=== PATIENT | female | born 1980 | race Caucasian/White ===

== ENCOUNTER 2018-09-24 13:32 | Emergency (ER) | payer OTHER ==
[2018-09-24 14:28] LABS: Urine Blood NEGATIVE (NEG); Urine Glucose NEGATIVE (NEG); Urine Protein TRACE (NEG); Urine pH 7.5 (5.0-7.0)
[2018-09-24 14:32] LABS: Urine Bacteria <20 /HPF (<20); Urine Culture Reflex Order NOT NEEDED; Urine Mucus SLIGHT /HPF (NONE SEEN); Urine RBC NONE SEEN /HPF (NONE SEEN)
--- NOTE | 2018-09-24 14:48 | EDPHYS ---
Physician Documentation [facility] Name: Mata Vital Age: 37 yrs Sex: Female : 1980 Arrival Date: 09/24/2018 Time: 13:35 Bed 26 Private MD: ED Physician Jose Juan Chacon HPI: 09/24 15:03 This 37 yrs old Female presents to ER via Ambulatory with complaints of STD kb Exposure. 15:04 The patient presents with a possible exposure to a sexually transmitted disease. Onset: kb The symptoms/episode began/occurred 1 week(s) ago. Modifying factors: The symptoms are alleviated by nothing, the symptoms are aggravated by nothing. Associated signs and symptoms: Pertinent positives: vaginal discharge. Severity of symptoms: At their worst the symptoms were very mild, mild, in the emergency department the symptoms are unchanged. The patient has not experienced similar symptoms in the past. The patient has not recently seen a physician. Pt states she finished a course of antibiotics for a tooth infection, then had some vaginal irritation so she took a diflucan on Friday. States it felt like the irritation was getting better, but then today it seems like it is coming back. States one of her sexual partners has been telling her he has some kind of STD symptoms so she needs to get checked. States "He is accusing me of giving him something, but I've only been with my and him so I don't think so." Reports slight dysuria. . 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 - Social history:: Smoking status: unknown. - Ebola Screening: : Patient negative for fever greater than or equal to 101.5 degrees Fahrenheit, and additional compatible Ebola Virus Disease symptoms Patient denies exposure to infectious person Patient denies travel to an Ebola-affected area in the 21 days before illness onset No symptoms or risks identified at this time. ROS: 14:57 Constitutional: Negative for fever, chills, and weight loss, Cardiovascular: Negative kb for chest pain, palpitations, and edema, Respiratory: Negative for shortness of breath, cough, wheezing, and pleuritic chest pain, Abdomen/GI: Negative for abdominal pain, nausea, vomiting, diarrhea, and constipation, Back: Negative for injury and pain, MS/Extremity: Negative for injury and deformity, Skin: Negative for injury, rash, and discoloration, Neuro: Negative for headache, weakness, numbness, tingling, and seizure. 14:57 : Positive for burning with urination, vaginal irritation. Exam: 14:57 Constitutional: This is a well developed, well nourished patient who is awake, alert, kb and in no acute distress. Head/Face: Normocephalic, atraumatic. Neck: Trachea midline, no thyromegaly or masses palpated, and no cervical lymphadenopathy. Supple, full range of motion without nuchal rigidity, or vertebral point tenderness. No Meningismus. Chest/axilla: Normal chest wall appearance and motion. Nontender with no deformity. No lesions are appreciated. Cardiovascular: Regular rate and rhythm with a normal S1 and S2. No gallops, murmurs, or rubs. Normal PMI, no JVD. No pulse deficits. Respiratory: Lungs have equal breath sounds bilaterally, clear to auscultation and percussion. No rales, rhonchi or wheezes noted. No increased work of breathing, no retractions or nasal flaring. Abdomen/GI: Soft, non-tender, with normal bowel sounds. No distension or tympany. No guarding or rebound. No evidence of tenderness throughout. Back: No spinal tenderness. No costovertebral tenderness. Full range of motion. Skin: Warm, dry with normal turgor. Normal color with no rashes, no lesions, and no evidence of cellulitis. MS/ Extremity: Pulses equal, no cyanosis. Neurovascular intact. Full, normal range of motion. Neuro: Awake and alert, GCS 15, oriented to person, place, time, and situation. Cranial nerves II-XII grossly intact. Motor strength 5/5 in all extremities. Sensory grossly intact. Cerebellar exam normal. Normal gait. Vital Signs: 13:44 BP 139 / 84; Pulse 84; Resp 18; Temp 98.3(TE); Pulse Ox 98% on R/A; Weight 68.04 kg; hj Height 5 ft. 8 in. (172.72 cm); Pain 7/10; 13:44 Body Mass Index 22.81 (68.04 kg, 172.72 cm) hj MDM: 13:51 Patient medically screened. kb 14:57 Data reviewed: vital signs, nurses notes. Data interpreted: Pulse oximetry: on room air kb is 98 %. Interpretation: normal. 15:02 Counseling: I had a detailed discussion with the patient and/or guardian regarding: the kb historical points, exam findings, and any diagnostic results supporting the discharge/admit diagnosis, the need for outpatient follow up, an OB/Gyne specialist, to return to the emergency department if symptoms worsen or persist or if there are any questions or concerns that arise at home. ED course: pt has follow up appt on friday. 09/24 14:04 Order name: Urine Microscopic Only; Complete Time: 14:33 kb 09/24 14:10 Order name: Urine Dipstick--Ancillary (enter results); Complete Time: 14:31 kb 09/24 14:15 Order name: Test, Urine; Complete Time: 14:31 EDAZ 09/24 14:04 Order name: Urine Dipstick-Ancillary (obtain specimen); Complete Time: 14:28 kb 09/24 14:04 Order name: Urine Test (obtain specimen); Complete Time: 14:28 kb Administered Medications: 15:00 Drug: Zithromax 1 grams Route: PO; iw 15:00 Drug: Rocephin (cefTRIAXone) 250 mg Route: IM; Site: right gluteus; iw 15:00 Drug: DiFLUcan 150 mg Route: PO; iw Disposition: 09/25 06:47 Co-signature as Attending Physician, Jose Juan Chacon MD I agree with the assessment and kdr plan of care. Disposition: 09/24/18 14:47 Discharged to Home. Impression: Dysuria, Encounter for STD exposure. - Condition is Stable. - Discharge Instructions: Dysuria, Sexually Transmitted Disease, Haid-iu-Hvgr. - Medication Reconciliation Form, Thank You Letter, Antibiotic Education, Prescription Opioid Use form. - Follow up: Emergency Department; When: As needed; Reason: Worsening of condition. Follow up: Private Physician; When: 2 - 3 days; Reason: Recheck today's complaints, Continuance of care, Re-evaluation by your physician. Signatures: Dispatcher [employer] EDAZ Keira Vital FNP-C FNP-Taylor Jose Juan Chacon MD MD kdr Leana Odonnell, JONN LUNSFORD iw Dennis Pedroza RN RN Corrections: (The following items were deleted from the chart) 09/24 14:48 14:47 09/24/2018 14:47 Discharged to Home. Impression: Dysuria. Condition is Stable. kb Forms are Medication Reconciliation Form, Thank You Letter, Antibiotic Education, Prescription Opioid Use. Follow up: Emergency Department; When: As needed; Reason: Worsening of condition. Follow up: Private Physician; When: 2 - 3 days; Reason: Recheck today's complaints, Continuance of care, Re-evaluation by your physician. kb 15:08 14:48 09/24/2018 14:47 Discharged to Home. Impression: Dysuria; Encounter for STD iw exposure. Condition is Stable. Forms are Medication Reconciliation Form, Thank You Letter, Antibiotic Education, Prescription Opioid Use. Follow up: Emergency Department; When: As needed; Reason: Worsening of condition. Follow up: Private Physician; When: 2 - 3 days; Reason: Recheck today's complaints, Continuance of care, Re-evaluation by your physician. kb
--- NOTE | 2018-09-24 14:48 | ER ---
Nurse's Notes [facility] Name: Mata Vital Age: 37 yrs Sex: Female : 1980 Arrival Date: 09/24/2018 Time: 13:35 Bed 26 Private MD: Diagnosis: Dysuria;Encounter for STD exposure Presentation: 09/24 13:41 Presenting complaint: Patient states: i took some amoxicillin for a week for my tooth hj infection, Diflucan for yeast infection, i feel like its not helping; reports vaginal irritation and discharge, whitish color; denies fever and chills; denies N/V:. Transition of care: patient was not received from another setting of care. Onset of symptoms was September 24, 2018. Risk Assessment: Do you want to hurt yourself or someone else? Patient reports no desire to harm self or others. Initial Sepsis Screen: Does the patient meet any 2 criteria? No. Patient's initial sepsis screen is negative. Does the patient have a suspected source of infection? No. Patient's initial sepsis screen is negative. Care prior to arrival: None. 13:41 Method Of Arrival: Ambulatory 13:41 Acuity: SUJATA 4 Triage Assessment: 14:30 General: Appears in no apparent distress. Behavior is calm, cooperative. Pain: Denies iw pain. 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 - Social history:: Smoking status: unknown. - Ebola Screening: : Patient negative for fever greater than or equal to 101.5 degrees Fahrenheit, and additional compatible Ebola Virus Disease symptoms Patient denies exposure to infectious person Patient denies travel to an Ebola-affected area in the 21 days before illness onset No symptoms or risks identified at this time. Screenin:40 Abuse screen: Denies threats or abuse. Denies injuries from another. Nutritional iw screening: No deficits noted. Tuberculosis screening: No symptoms or risk factors identified. Fall Risk None identified. Assessment: 14:40 General: Appears in no apparent distress. comfortable, Behavior is calm, cooperative. iw Neuro: Level of Consciousness is awake, alert, obeys commands, Oriented to person, place, time, situation, Moves all extremities. Full function. Cardiovascular: Patient's skin is warm and dry. Respiratory: Respiratory effort is even, unlabored, Respiratory pattern is regular, symmetrical. : Reports discharge, from vagina that is white, vaginal itching. Derm: Skin is intact, is healthy with good turgor. Musculoskeletal: Range of motion: intact in all extremities. Vital Signs: 13:44 BP 139 / 84; Pulse 84; Resp 18; Temp 98.3(TE); Pulse Ox 98% on R/A; Weight 68.04 kg; hj Height 5 ft. 8 in. (172.72 cm); Pain 7/10; 13:44 Body Mass Index 22.81 (68.04 kg, 172.72 cm) hj ED Course: 13:35 Patient arrived in ED. rg4 13:43 Triage completed. hj 13:44 Keira Vital FNP-C is [facility]. kb 13:44 Jose Juan Chacon MD is Attending Physician. kb 13:44 Arm band placed on left wrist. hj 14:00 Patient has correct armband on for positive identification. iw 14:14 Leana Odonnell, RN is Primary Nurse. iw 15:06 No provider procedures requiring assistance completed. Patient did not have IV access iw during this emergency room visit. Administered Medications: 15:00 Drug: Zithromax 1 grams Route: PO; iw 15:00 Drug: Rocephin (cefTRIAXone) 250 mg Route: IM; Site: right gluteus; iw 15:00 Drug: DiFLUcan 150 mg Route: PO; iw Outcome: 14:47 Discharge ordered by . kb 15:07 Discharged to home ambulatory. iw 15:07 Condition: good 15:07 Discharge instructions given to patient, Instructed on discharge instructions, follow up and referral plans. Demonstrated understanding of instructions, follow-up care. 15:08 Patient left the ED. iw Signatures: Keira Vital FNP-C FNP-Ckb Williams, Irene, RN RN Dennis Pedroza RN RN Ally Brown rg4 Corrections: (The following items were deleted from the chart) 13:46 13:44 Pulse 84bpm; Resp 18bpm; Pulse Ox 98% RA; Temp 98.3F Temporal; 68.04 kg; Height 5 hj ft. 8 in.; BMI: 22.8; Pain 7/10; hj
[2018-09-24] MEDS ORDERED: LIDOCAINE 1% MPF 5 ML VIAL ONE (15:09)
[2018-09-24] MEDS ORDERED: AZITHROMYCIN 250 MG TAB ONE (15:09)
[2018-09-24] MEDS ORDERED: FLUCONAZOLE 100 MG TAB ONE (15:10)
[2018-09-24] MEDS ORDERED: CEFTRIAXONE 250 MG/VIAL ONE (15:10)
== END 2018-09-24 15:08 | disposition home or self-care (01) ==
LOC: ER 13:32
DX: Z20.2 Contact with and (suspected) exposure to infections with a predominantly sexual mode of transmission (principal); R30.0 Dysuria; F31.9 Bipolar disorder, unspecified; Z88.2 Allergy status to sulfonamides
CPT/HCPCS: 81003; 81015; 81025; 96372; 99283; J0696

== ENCOUNTER 2018-10-27 16:51 | Emergency (ER) | payer OTHER ==
--- NOTE | 2018-10-27 17:25 | EDPHYS ---
Physician Documentation [facility] Name: Mata Vital Age: 38 yrs Sex: Female : 1980 Arrival Date: 10/27/2018 Time: 16:54 Bed 25 Private MD: ED Physician Elias Hwang HPI: 10/27 17:15 This 38 yrs old Female presents to ER via Ambulatory with complaints of rn Fever, Congestion. 17:15 The patient reports fever, not measured (subjective). Onset: The symptoms/episode rn began/occurred 4 day(s) ago. Modifying factors: there are no obvious modifying factors. Associated signs and symptoms: Pertinent positives: cough, runny nose, sinus congestion. Severity of symptoms: At their worst the symptoms were mild in the emergency department the symptoms are unchanged. The patient has experienced similar episodes in the past. Reports chronic cough, got worse over the weekend, mucous, with runny nose and congestion, subjective fever, is active smoker for 22 years. Reports "always has bronchitis", and usually given abx. States this usually never works. NO hemoptysis. No Sob. . 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 - Social history:: Smoking status: Patient uses tobacco products, smokes one pack cigarettes per day. - Ebola Screening: : No symptoms or risks identified at this time. - Family history:: not pertinent. - Hospitalizations: : No recent hospitalization is reported. 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 Exam: 17:15 Constitutional: This is a well developed, well nourished patient who is awake, alert, rn and in no acute distress. Ambulatory to room without difficulty or assistance. Head/Face: Normocephalic, atraumatic. ENT: MMM, no stridor or swelling Neck: Non-tender cervical LAD Cardiovascular: Regular rate and rhythm. No pulse deficits. Respiratory: Lungs have equal breath sounds bilaterally, clear to auscultation. No increased work of breathing, no retractions or nasal flaring. MS/ Extremity: Pulses equal, no cyanosis. Neurovascular intact. Full, normal range of motion. Equal circumference. Neuro: Awake and alert, GCS 15 Vital Signs: 16:59 BP 113 / 81; Pulse 78; Resp 16; Temp 98.7; Pulse Ox 100% on R/A; Weight 72.57 kg; la1 Height 5 ft. 8 in. (172.72 cm); 16:59 Body Mass Index 24.33 (72.57 kg, 172.72 cm) la1 MDM: 17:00 Patient medically screened. rn 17:15 Differential diagnosis: viral Infection, URI, bronchitis. Data reviewed: vital signs, rn nurses notes, and as a result, I will discharge patient. Counseling: I had a detailed discussion with the patient and/or guardian regarding: the historical points, exam findings, and any diagnostic results supporting the discharge/admit diagnosis, the need for outpatient follow up, to return to the emergency department if symptoms worsen or persist or if there are any questions or concerns that arise at home. Special discussion: I discussed with the patient/guardian in detail that at this point there is no indication for admission to the hospital. It is understood, however, that if the symptoms persist or worsen the patient needs to return immediately for re-evaluation. ED course: Patient without oxygen requirement, clear breath sounds, offered patient xray, patient declines. Had long discussion regarding need to quit smoking and how likely causing her chronic cough and respiratory symptoms. In addition spoke at length about not needing abx and clinically does not seem to have pneumonia. Will dc home.. 17:26 Counseling: I had a detailed discussion with the patient and/or guardian regarding: rn smoking cessation. Administered Medications: No medications were administered Disposition: 10/27/18 17:24 Discharged to Home. Impression: Cough, Acute upper respiratory infection, unspecified. - Condition is Stable. - Discharge Instructions: Steps to Quit Smoking, Smoking Hazards, Upper Respiratory Infection, Adult, Viral Respiratory Infection, Cough, Adult. - Prescriptions for Guaifenesin AC 10- 100 mg/5 mL Oral Liquid - take 10 milliliters by ORAL route At bedtime As needed; 140 milliliter. - Medication Reconciliation Form, Thank You Letter, Antibiotic Education, Prescription Opioid Use, Work release form form. - Follow up: Private Physician; When: As needed; Reason: Recheck today's complaints, Re-evaluation by your physician. - Problem is an ongoing problem. - Symptoms are unchanged. Signatures: Elias Hwang MD MD rn AttemLouis kelley RN RN la1 Lena Lowe RN RN tw2 Corrections: (The following items were deleted from the chart) 17:31 17:24 10/27/2018 17:24 Discharged to Home. Impression: Cough; Acute upper respiratory tw2 infection, unspecified. Condition is Stable. Forms are Medication Reconciliation Form, Thank You Letter, Antibiotic Education, Prescription Opioid Use. Follow up: Private Physician; When: As needed; Reason: Recheck today's complaints, Re-evaluation by your physician. Problem is an ongoing problem. Symptoms are unchanged. rn
--- NOTE | 2018-10-27 17:25 | ER ---
Nurse's Notes [facility] Name: Mata Vital Age: 38 yrs Sex: Female : 1980 Arrival Date: 10/27/2018 Time: 16:54 Bed 25 Private MD: Diagnosis: Cough;Acute upper respiratory infection, unspecified Presentation: 10/27 16:59 Presenting complaint: Patient states: four days of cough, DHALIWAL, sneezing, subjective la1 fever, niece is also ill with similar sx at home. Transition of care: patient was not received from another setting of care. Onset of symptoms was October 27, 2018. Risk Assessment: Do you want to hurt yourself or someone else? Patient reports no desire to harm self or others. Initial Sepsis Screen: Does the patient meet any 2 criteria? No. Patient's initial sepsis screen is negative. Does the patient have a suspected source of infection? No. Patient's initial sepsis screen is negative. Care prior to arrival: None. 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 - Social history:: Smoking status: Patient uses tobacco products, smokes one pack cigarettes per day. - Ebola Screening: : No symptoms or risks identified at this time. - Family history:: not pertinent. - Hospitalizations: : No recent hospitalization is reported. Screenin:30 Abuse screen: Denies threats or abuse. Nutritional screening: No deficits noted. tw2 Tuberculosis screening: No symptoms or risk factors identified. Fall Risk None identified. Assessment: 17:29 General: Appears in no apparent distress. Behavior is calm, cooperative, appropriate tw2 for age. Pain: Denies pain. Neuro: Level of Consciousness is awake, alert, obeys commands, Oriented to person, place, time, situation. Cardiovascular: Patient's skin is warm and dry. Respiratory: Reports cough that is non-productive, Airway is patent Respiratory effort is even, unlabored, Respiratory pattern is regular, symmetrical. GI: No signs and/or symptoms were reported involving the gastrointestinal system. : No signs and/or symptoms were reported regarding the genitourinary system. EENT: Reports nasal congestion nasal discharge. Derm: No signs and/or symptoms reported regarding the dermatologic system. Musculoskeletal: Range of motion: intact in all extremities. Vital Signs: 16:59 BP 113 / 81; Pulse 78; Resp 16; Temp 98.7; Pulse Ox 100% on R/A; Weight 72.57 kg; la1 Height 5 ft. 8 in. (172.72 cm); 16:59 Body Mass Index 24.33 (72.57 kg, 172.72 cm) la1 ED Course: 16:54 Patient arrived in ED. mr 16:58 Arm band placed on left wrist. la1 17:00 Triage completed. la1 17:00 Elias Hwang MD is Attending Physician. rn 17:00 Bed in low position. Call light in reach. tw2 17:25 Lena Lowe RN is Primary Nurse. tw2 17:30 No provider procedures requiring assistance completed. Patient did not have IV access tw2 during this emergency room visit. Administered Medications: No medications were administered Outcome: 17:24 Discharge ordered by . rn 17:30 Discharged to home ambulatory. tw2 17:30 Condition: stable 17:30 Discharge instructions given to patient, Instructed on discharge instructions, follow up and referral plans. medication usage, Demonstrated understanding of instructions, follow-up care, medications, Prescriptions given X 1. 17:31 Patient left the ED. tw2 Signatures: Alexandru Malu mr Elias Hwang MD MD rn Attema, Lee, RN RN la1 Lena Lowe RN RN tw2
== END 2018-10-27 17:31 | disposition home or self-care (01) ==
LOC: ER 16:51
DX: J06.9 Acute upper respiratory infection, unspecified (principal); F17.210 Nicotine dependence, cigarettes, uncomplicated; Z88.2 Allergy status to sulfonamides

== ENCOUNTER 2018-12-12 15:58 | Emergency (ER) | payer SELFPAY ==
[2018-12-12 17:07] LABS: Urine Bacteria <20 /HPF (<20); Urine Culture Reflex Order REFLEXED
[2018-12-12 17:08] LABS: Urine Trichomonas PRESENT (NONE SEEN)
--- NOTE | 2018-12-12 17:10 | ER ---
Nurse's Notes [facility] Name: Mata Vital Age: 38 yrs Sex: Female : 1980 Arrival Date: 12/12/2018 Time: 16:01 Bed 8 Private MD: Diagnosis: Trichomoniasis Presentation: 12/12 16:13 Presenting complaint: Patient states: burning, stinging pain to vaginal area X 2 weeks, iw felt like yeast infection, has tried Monistat 3 with no relief. Transition of care: patient was not received from another setting of care. Onset of symptoms was November 28, 2018. Risk Assessment: Do you want to hurt yourself or someone else? Patient reports no desire to harm self or others. Initial Sepsis Screen: Does the patient meet any 2 criteria? No. Patient's initial sepsis screen is negative. Does the patient have a suspected source of infection? No. Patient's initial sepsis screen is negative. Care prior to arrival: None. 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 - Social history:: Smoking status: Patient uses tobacco products, smokes one pack cigarettes per day. - Ebola Screening: : Patient negative for fever greater than or equal to 101.5 degrees Fahrenheit, and additional compatible Ebola Virus Disease symptoms Patient denies exposure to infectious person Patient denies travel to an Ebola-affected area in the 21 days before illness onset No symptoms or risks identified at this time. Screenin:46 Abuse screen: Denies threats or abuse. Denies injuries from another. Nutritional jl7 screening: No deficits noted. Tuberculosis screening: No symptoms or risk factors identified. Fall Risk None identified. Assessment: 16:46 General: Appears in no apparent distress. uncomfortable, Behavior is cooperative, jl7 appropriate for age, anxious. Pain: Denies pain. Neuro: Level of Consciousness is awake, alert, obeys commands, Oriented to person, place, time, situation. Cardiovascular: Patient's skin is warm and dry. Respiratory: Airway is patent Respiratory effort is even, unlabored, Respiratory pattern is regular, symmetrical. : Swelling noted on labia Reports burning with urination, vaginal itching. Derm: Skin is pink, warm \T\ dry. Vital Signs: 16:20 BP 113 / 71; Pulse 108; Resp 18 S; Temp 98.0; Pulse Ox 99% on R/A; Weight 70.31 kg; iw Height 5 ft. 8 in. (172.72 cm); Pain 8/10; 16:20 Body Mass Index 23.57 (70.31 kg, 172.72 cm) iw ED Course: 16:01 Patient arrived in ED. mr 16:07 [facility] kb 16:07 Jose Juan Chacon MD is Attending Physician. kb 16:18 Triage completed. iw 16:19 Slava Montesinos, RN is Primary Nurse. bp 16:21 Arm band placed on. iw 16:30 Abdoulaye Soto, JONN is Primary Nurse. jl7 16:30 Patient has correct armband on for positive identification. Placed in gown. Bed in low jl7 position. Call light in reach. Side rails up X 1. 16:47 No provider procedures requiring assistance completed. Patient did not have IV access jl7 during this emergency room visit. Administered Medications: 17:27 Drug: DiFLUcan 150 mg Route: PO; jl7 17:27 Follow up: Response: Medication administered at discharge. jl7 17:27 Drug: Flagyl 2 grams Route: PO; jl7 17:27 Follow up: Response: Medication administered at discharge. jl7 Outcome: 17:10 Discharge ordered by MD. kb 17:27 Discharged to home ambulatory. jl7 17:27 Condition: stable 17:27 Discharge instructions given to patient, Instructed on discharge instructions, follow up and referral plans. Demonstrated understanding of instructions, follow-up care. 17:28 Patient left the ED. jl7 Signatures: Keira Vital FNP-C FNP-Taylor Malu Horvath Leana Odonnell RN RN iw Abdoulaye Soto RN RN jl7 Slava Montesinos RN RN bp
--- NOTE | 2018-12-12 17:10 | EDPHYS ---
Physician Documentation [facility] Name: Mata Vital Age: 38 yrs Sex: Female : 1980 Arrival Date: 12/12/2018 Time: 16:01 Bed 8 Private MD: ED Physician Jose Juan Chacon HPI: 12/12 16:57 This 38 yrs old Female presents to ER via Ambulatory with complaints of Women kb problems. 17:00 The patient presents with perineal itching, urinary symptoms, dysuria. Onset: The kb symptoms/episode began/occurred 2 week(s) ago. Modifying factors: The symptoms are alleviated by nothing, the symptoms are aggravated by urinating. Associated signs and symptoms: Pertinent positives: dysuria. Severity of symptoms: At their worst the symptoms were moderate, in the emergency department the symptoms are unchanged. The patient has experienced similar episodes in the past. The patient has not recently seen a physician. Pt reports she has had symptoms of a yeast infection for 2 weeks. Took monistat 3 with no relief. c/o itching and burning to vaginal area, worse with urination. 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 - Social history:: Smoking status: Patient uses tobacco products, smokes one pack cigarettes per day. - Ebola Screening: : Patient negative for fever greater than or equal to 101.5 degrees Fahrenheit, and additional compatible Ebola Virus Disease symptoms Patient denies exposure to infectious person Patient denies travel to an Ebola-affected area in the 21 days before illness onset No symptoms or risks identified at this time. ROS: 16:56 Constitutional: Negative for fever, chills, and weight loss, Neck: Negative for injury, kb pain, and swelling, Cardiovascular: Negative for chest pain, palpitations, and edema, Respiratory: Negative for shortness of breath, cough, wheezing, and pleuritic chest pain, Abdomen/GI: Negative for abdominal pain, nausea, vomiting, diarrhea, and constipation, Back: Negative for injury and pain, MS/Extremity: Negative for injury and deformity, Skin: Negative for injury, rash, and discoloration, Neuro: Negative for headache, weakness, numbness, tingling, and seizure. 16:56 : Positive for burning with urination, vaginal pain, burning, itching. Exam: 16:56 Constitutional: This is a well developed, well nourished patient who is awake, alert, kb and in no acute distress. Head/Face: Normocephalic, atraumatic. ENT: Nares patent. No nasal discharge, no septal abnormalities noted. Tympanic membranes are normal and external auditory canals are clear. Oropharynx with no redness, swelling, or masses, exudates, or evidence of obstruction, uvula midline. Mucous membranes moist. Neck: Trachea midline, no thyromegaly or masses palpated, and no cervical lymphadenopathy. Supple, full range of motion without nuchal rigidity, or vertebral point tenderness. No Meningismus. Chest/axilla: Normal chest wall appearance and motion. Nontender with no deformity. No lesions are appreciated. Cardiovascular: Regular rate and rhythm with a normal S1 and S2. No gallops, murmurs, or rubs. Normal PMI, no JVD. No pulse deficits. Respiratory: Lungs have equal breath sounds bilaterally, clear to auscultation and percussion. No rales, rhonchi or wheezes noted. No increased work of breathing, no retractions or nasal flaring. Abdomen/GI: Soft, non-tender, with normal bowel sounds. No distension or tympany. No guarding or rebound. No evidence of tenderness throughout. Skin: Warm, dry with normal turgor. Normal color with no rashes, no lesions, and no evidence of cellulitis. MS/ Extremity: Pulses equal, no cyanosis. Neurovascular intact. Full, normal range of motion. Neuro: Awake and alert, GCS 15, oriented to person, place, time, and situation. Cranial nerves II-XII grossly intact. Motor strength 5/5 in all extremities. Sensory grossly intact. Cerebellar exam normal. Normal gait. 16:56 : Pelvic Exam: External exam: excoriation noted, the nurse was present for the exam. Vital Signs: 16:20 BP 113 / 71; Pulse 108; Resp 18 S; Temp 98.0; Pulse Ox 99% on R/A; Weight 70.31 kg; iw Height 5 ft. 8 in. (172.72 cm); Pain 8/10; 16:20 Body Mass Index 23.57 (70.31 kg, 172.72 cm) MDM: 16:07 Patient medically screened. kb 16:22 Data reviewed: vital signs, nurses notes. Data interpreted: Pulse oximetry: on room air kb is 99 %. Interpretation: normal. Counseling: I had a detailed discussion with the patient and/or guardian regarding: the historical points, exam findings, and any diagnostic results supporting the discharge/admit diagnosis, lab results, the need for outpatient follow up, an OB/Gyne specialist, to return to the emergency department if symptoms worsen or persist or if there are any questions or concerns that arise at home. 12/12 16:33 Order name: Urine Dipstick--Ancillary (enter results) ms 12/12 16:33 Order name: Urine Microscopic Only; Complete Time: 17:08 iw 12/12 16:14 Order name: Urine Dipstick-Ancillary (obtain specimen); Complete Time: 16:31 kb 12/12 17:10 Order name: Urine Culture EDMS Administered Medications: 17:27 Drug: DiFLUcan 150 mg Route: PO; jl7 17:27 Follow up: Response: Medication administered at discharge. jl7 17:27 Drug: Flagyl 2 grams Route: PO; jl7 17:27 Follow up: Response: Medication administered at discharge. jl7 Disposition: 12/13 07:14 Co-signature as Attending Physician, Jose Juan Chacon MD I agree with the assessment and kdr plan of care. Disposition: 12/12/18 17:10 Discharged to Home. Impression: Trichomoniasis. - Condition is Stable. - Discharge Instructions: Trichomoniasis. - Medication Reconciliation Form, Thank You Letter, Antibiotic Education, Prescription Opioid Use form. - Follow up: Emergency Department; When: As needed; Reason: Worsening of condition. Follow up: Private Physician; When: 2 - 3 days; Reason: Recheck today's complaints, Continuance of care, Re-evaluation by your physician. Signatures: Dispatcher [employer] EDMS Keira Vital, Jose Juan Jacobsen MD MD [facility] Leana Odonnell RN RN Soto, Jahala, RN RN jl7 Corrections: (The following items were deleted from the chart) 12/12 17:28 17:10 12/12/2018 17:10 Discharged to Home. Impression: Trichomoniasis. Condition is jl7 Stable. Forms are Medication Reconciliation Form, Thank You Letter, Antibiotic Education, Prescription Opioid Use. Follow up: Emergency Department; When: As needed; Reason: Worsening of condition. Follow up: Private Physician; When: 2 - 3 days; Reason: Recheck today's complaints, Continuance of care, Re-evaluation by your physician. kb
[2018-12-12] MEDS ORDERED: metroNIDAZOLE 500 MG TABLET ONE ×2 (17:12→17:18)
[2018-12-12] MEDS ORDERED: FLUCONAZOLE 100 MG TAB ONE (17:12)
[2018-12-12 19:09] VITALS: BP 113/71; TEMP 98; O2SAT 99
[2018-12-12 20:13] LABS: Urine Blood 1+ (NEG); Urine Glucose NEGATIVE (NEG); Urine Protein NEGATIVE (NEG); Urine Specific Gravity 1.025 (1.005-1.030); Urine pH 5.5 (5.0-7.0)
== END 2018-12-12 17:28 | disposition home or self-care (01) ==
LOC: ER 15:58
DX: A59.9 Trichomoniasis, unspecified (principal); F17.210 Nicotine dependence, cigarettes, uncomplicated; F31.9 Bipolar disorder, unspecified; Z88.2 Allergy status to sulfonamides
CPT/HCPCS: 81003; 81015; 87086; 87088; 99283